=== PATIENT | female | born 1995 | race Two or more races ===

== ENCOUNTER 2024-09-12 21:07 | Emergency (ER) | payer OTHER, SELFPAY ==
[2024-09-12 21:13] VITALS: BP 129/83
[2024-09-12 21:35] LABS: % Basophils 0.8 % (0-2); % Eosinophils 2.5 % (0-6); % Immature Granulocytes 0.3 % (0-0.5); % Lymphocytes 29.9 % (20.5-51.1); % Monocytes 5.9 % (1.7-9.3); % Neutrophils 60.6 % (42.2-75.2); Absolute Basophils 0.1 10^3/uL (0-0.2); Absolute Eosinophils 0.2 10^3/uL (0-0.7); Absolute Lymphocytes 2.3 10^3/uL (1.2-3.4); Absolute Monocytes 0.5 10^3/uL (0.1-0.6); Absolute Neutrophils 4.7 10^3/uL (1.4-6.5); Hematocrit 39.9 % (37.0-47.0); Hemoglobin 13.5 g/dL (12.0-16.0); Mean Corp Hgb Conc. 33.8 g/dL (33.0-37.0); Mean Corpuscular Hgb 28.1 pg (27.0-31.0); Mean Platelet Volume 9.6 fL (7.4-10.4); Nucleated Red Blood Cells % 0 %; Platelet Count 270 10^3/uL (130-400); Red Blood Cell Count 4.81 10^6/uL (4.20-5.40); Red Cell Dist. Width 11.9 % (11.5-14.5); White Blood Cell Count 7.7 10^3/uL (4.8-10.8)
[2024-09-12 21:55] LABS: HCG, Serum Qualitative Screen Negative
[2024-09-12 21:58] LABS: ALT (SGPT) 12 U/L (0-35); AST (SGOT) 24 U/L (14-36); Albumin 4.5 g/dl (3.5-5.0); Alkaline Phosphatase 50 U/L (38-126); Blood Urea Nitrogen 13 mg/dl (7-17); Calcium 9.6 mg/dl (8.4-10.2); Carbon Dioxide 26 mmol/L (22-30); Chloride 103 mmol/L (98-107); Glucose 96 mg/dl (70-99); Potassium 4.6 mmol/L (3.5-5.1); Sodium 138 mmol/L (135-145); Total Bilirubin 0.4 mg/dl (0.2-1.3); Total Protein 7.3 g/dl (6.3-8.2); eGFR > 60.00
[2024-09-12] MEDS: MOTRIN 400 MG PO (23:35)
--- NOTE | 2024-09-12 23:35 | ED.GENMED ---
History of Present Illness
General
Chief Complaint: Headache
Source: patient
Exam Limitations: none
Time Seen by Provider: 09/12/24 23:25
History of Present Illness
History of Present Illness:
See MDM
Past History
Past History
ED Past Medical History: None
ED Past Surgical History: None
Social History
Tobacco: Non-smoker
Alcohol: None
Phy Exam
Physical Exam
Physical Exam:
See MDM
Course
Orders/Labs/Results
Orders:
Orders
09/12/24 21:16
Electrocardiogram (*1) Urgent
Reason for Study: Vertigo / Dizzy
EKG- Treatment ONCE
Test Result ONCE
09/12/24 21:26
Complete Blood Count/With Diff Urgent
Comprehensive Metabolic Panel Urgent
HCG, Serum Qualitative Screen Urgent
09/12/24 23:32
CT Head W/o Iv Contrast Urgent
Comment:
Reason For Exam: R side headache
Ibuprofen [Motrin] 400 mg PO NOW STA
09/12/24 21:26
09/12/24 21:26
Vital Signs
Initial and Last Documented VS:
Initial Vital Signs
Temp Pulse Resp BP Pulse Ox
98.5 F 95 16 129/83 98
09/12/24 21:13 09/12/24 21:13 09/12/24 21:13 09/12/24 21:13 09/12/24 21:13
Last Documented Vital Signs
Temp Pulse Resp BP Pulse Ox
98.5 F 95 16 129/83 98
09/12/24 21:13 09/12/24 21:13 09/12/24 21:13 09/12/24 21:13 09/12/24 21:13
MDM/Problems Addressed
Differential Diagnosis Includes:
HPI and MDM Narrative:
29-year-old female presenting with right-sided headache. She felt a pop sensation in her right upper scalp 2 days ago. This was associated with a warm sensation going down her head. This developed into a sudden headache. Symptoms appeared to
resolve but then reoccurred earlier today. Tylenol is not helping. She complains of fogginess and sensation of trouble concentrating but denies any trauma. Prior to this, she was canoing earlier in the day.
Blood work was done prior to my evaluation. Blood work without any abnormality. She has no focal deficits on exam. Will give Motrin and obtain CT given her unilateral headache
Physical exam
General: Well appearing and non-toxic
HEENT: protecting airway. Pupils equal and reactive
Neck: supple
CV: No evidence of cyanosis
Resp: No accessory muscle use
Abd: Non-distended
Extremities: No deformities
Neuro: alert. Muscle strength and sensation grossly intact in all 4 extremities. Normal finger-nose bilaterally
Psych: Normal affect
Skin: Intact
Problems Addressed including Acute and Chronic Conditions affecting care:
1. Right-sided headache
Acuity: acute
Prognosis: stable
Details: Likely tension headache versus migraine. Will give Motrin and obtain CT head
Updates
CT head negative. Discussed return precautions
Differential Diagnosis (but not limited to): Tension headache, migraine, muscle strain
Testing considered: Carotid imaging but she denies any anterior neck tenderness
Drug therapy (if applicable): OTC meds, please see d/c instruction regarding Rx drugs
Amount and/or Complexity of Data Reviewed
Clinical info obtained from: Patient
External data reviewed: N/A
Labs I independently reviewed (but not limited to): White blood cell count normal
Radiology: The CT scan was personally and independently reviewed. In addition, official CT report reviewed.
Pulse Ox: not hypoxic
EKG independently reviewed: N/A
Medical Biller: N/A
Critical Care: N/A
Risk of Complication:
Social Determinants of health: Good social support
Discussed with other providers: N/A
Escalation of Care includes Admit/Obs: After being observed in the Emergency Department, pt stable for discharge.
Occasional wrong word or 'sound a like' substitutions may have occurred due to the inherent limitations of voice recognition software. Read the chart carefully and recognize, using context, where substitutions have occurred.
*Critical Care Note
Total Time (30-74mins, 75-104mins- exclusive of procedures): Not Applicable
ED Attending Note
-
Portions of this chart may have been created with voice recognition software.� Occasional wrong word or��sound alike� substitutions may have occurred due to the inherent limitations of voice recognition software.
Discharge Plan
Departure
Patient Disposition: Home (Routine Discharge)
Date of Disposition: 09/13/24
Time of Disposition: 00:25
Patient with high blood pressure during this ER visit?: No
Discharge Problem:
Headache
Instructions: Headache, Adult (DC)
Referrals:
Yadi Cabrera CRNP [Family Provider] -
Activity Restrictions/Additional Instructions:
Please return for any worsening symptoms.
You may return at any time if you have further concerns.
Please follow up with your doctor at the first available appointment, preferably this week.
Thank you for choosing [facility].
Interventions
Interventions:
*Risk Screen - Suicide Last Done: 09/12/24 21:13
*General Assessment Last Done: 09/12/24 21:13
*Neglect/Abuse Screening Last Done: 09/12/24 21:13
*ED COVID-19 Vaccine History Last Done: 09/12/24 21:13
ED- Neurological Assessment Last Done: 09/13/24 00:25
Discharge Date and Time
Print Language: KITTITIAN
[2024-09-13 00:25] VITALS: BP 112/74
== END 2024-09-13 00:30 | disposition home or self-care (01) ==
LOC: EMR 21:07
PROVIDERS: Emergency Medicine; EMERGENCY PHYSICIAN Student in an Organized Health Care Education/Training Program; FAMILY PHYSICIAN Nurse Practitioner Family
DX: R51.9 Headache, unspecified (principal)
CPT/HCPCS: 99284; 70450; 80053; 84703; 85025; 93005